=== PATIENT | male | born 1995 | race Caucasian/White ===

== ENCOUNTER 2016-11-06 10:09 | Emergency (ER) | payer BC ==
[~2016-11-06] VITALS: Ht 182.9 cm; Wt 61.2 kg
[2016-11-06 10:38] VITALS: BP 132/70
--- NOTE | 2016-11-06 10:53 | NUR ---
Patient ambulated to bed 06.
--- NOTE | 2016-11-06 10:54 | NUR ---
PATIENT PRESENTS TO ED WITH LEFT HAND LACERATION FROM METAL CUT; SUTURED LAST Sep; NO MEDICAL HISTORY; DENIES N/V/D; SKIN IS PINK/WARM/DRY; AAOX4 WITH EVEN AND STEADY GAIT; LUNGS CLEAR BL; HR EVEN AND REGULAR; PT DENIES ANY FEVER, CP, SOB, OR COUGH AT THIS TIME; PATIENT STATES PAIN OF 0/10 AT THIS TIME; VSS; PATIENT POSITIONED FOR COMFORT; HOB ELEVATED; BEDRAILS UP X2; BED DOWN. ER MD MADE AWARE OF PT STATUS.
--- NOTE | 2016-11-06 10:54 | NUR ---
Dr. Keith evaluating patient at bedside.
--- NOTE | 2016-11-06 11:00 | NUR ---
SUTURE REMOVED BY JASMYN GAMBLE
[2016-11-06 11:05] VITALS: BP 125/69
--- NOTE | 2016-11-06 11:05 | NUR ---
Patient discharged with v/s stable. Written and verbal after care instructions given and explained. Patient verbalized understanding. Ambulatory with steady gait. All questions addressed prior to discharge. Advised to follow up with PMD.
== END 2016-11-06 11:05 | disposition home or self-care (01) ==
LOC: MED 10:13
DX: S61.412D Laceration without foreign body of left hand, subsequent encounter (principal)

== ENCOUNTER 2018-04-21 14:24 | Emergency (ER) | payer BC ==
[~2018-04-21] VITALS: Ht 182.9 cm; Wt 104.3 kg
[2018-04-21 15:09] VITALS: BP 130/51
--- NOTE | 2018-04-21 15:30 | NUR ---
PT AMBULATED TO ER BED 4.
--- NOTE | 2018-04-21 15:48 | NUR ---
22/M PRESENT TO ER C/O GENERAL WEAKNESS X 4 DAYS----FATIGUED, DIZZINESS, NAUSEA, AND HEADACHE,DIAPHORETIC AT TIMES--NO NUCHAL RIGIDITY, NO COUGH. DENIES RECENT INJURIES OR TRAUMA. AAOx4, PERRLA, BREATHING EVEN AND UNLABORED. ERMD NOTIFIED OF PATIENT STATUS.
[2018-04-21] MEDS ORDERED: DEXAMETHASONE 10 MG/ML VIAL IM ONE (16:25)
[2018-04-21] MEDS ORDERED: cefTRIAXone 1,000 MG in LIDOCAINE 1% ***ER ONLY *** 2.1 ML IM ONE (16:25)
[2018-04-21] MEDS ORDERED: KETOROLAC 60 MG/2 ML VIAL IM ONE (16:25)
--- NOTE | 2018-04-21 16:30 | NUR ---
Patient being evaluated by physician at bedside.
[2018-04-21] MEDS ORDERED: cefTRIAXone 1,000 MG VIAL ONE (16:43)
[2018-04-21] MEDS ORDERED: LIDOCAINE MPF 1% - 5 mL VIAL 5 ML ONE (16:44)
[2018-04-21 17:10] LABS: APPEARANCE,URINE CLEAR (CLEAR); BILIRUBIN,URINE NEGATIVE (NEGATIVE); BLOOD, URINE 1+ (NEGATIVE); COLOR,URINE YELLOW (YELLOW); LEUKOCYTE ESTERASE ,URINE NEGATIVE (NEGATIVE); NITRITE, URINE NEGATIVE (NEGATIVE); UGLUCOSE NEGATIVE (NEGATIVE)
--- NOTE | 2018-04-21 17:19 | NUR ---
PT RESTING, VSS. AAOx4, WILL CONTINUE TO MONITOR.
[2018-04-21 17:23] LABS: RBC,URINE 3-10 (FEW) /HPF (0-5); WBC,URINE 0-5 (RARE) /HPF (0-5)
--- NOTE | 2018-04-21 17:23 | NUR ---
Patient discharged with v/s stable. Written and verbal after care instructions given and explained. Patient alert, oriented and verbalized understanding of instructions. Ambulatory with steady gait. All questions addressed prior to discharge. ID band removed. Patient advised to follow up with PMD. Rx of CVLINDAMYCIN 300MG CAPSULE AND MOTRIN 800MG TABLET given. Patient educated on indication of medication including possible reaction and side effects. Opportunity to ask questions provided and answered.
[2018-04-21 17:24] VITALS: BP 129/71
== END 2018-04-21 17:25 | disposition home or self-care (01) ==
LOC: MED 14:24
DX: J03.90 Acute tonsillitis, unspecified (principal); M79.1 Myalgia; R11.0 Nausea
CPT/HCPCS: 81001; 81002; 96372; 99284; J0696; J1100; J1885; J2001